=== PATIENT | male | born 1990 | race Caucasian/White ===

== ENCOUNTER 2017-07-17 10:37 | Emergency (ER) | payer MEDICAID ==
[~2017-07-17] VITALS: Ht 177.8 cm; Wt 84.1 kg
[2017-07-17 10:47] VITALS: Ht 177.8 cm; Wt 84.1 kg
[2017-07-17 11:56] LABS: UDS - AMPHET NEGATIVE QUAL (NEGATIVE); UDS - BARB NEGATIVE QUAL (NEGATIVE); UDS - BENZO NEGATIVE QUAL (NEGATIVE); UDS - COCAINE NEGATIVE QUAL (NEGATIVE); UDS - OPIATE NEGATIVE QUAL (NEGATIVE); UDS - PCP NEGATIVE QUAL (NEGATIVE); UDS - THC POSITIVE QUAL (NEGATIVE)
[2017-07-17 12:51] VITALS: BP 154/88
== END 2017-07-17 12:52 | disposition home or self-care (01) ==
LOC: D.ER 10:37
PROVIDERS: Family Medicine
DX: S30.0XXA Contusion of lower back and pelvis, initial encounter (principal); Y04.2XXA Assault by strike against or bumped into by another person, initial encounter; Y93.89 Activity, other specified; Y92.89 Other specified places as the place of occurrence of the external cause; R68.84 Jaw pain

== ENCOUNTER 2017-08-17 10:34 | Emergency (ER) | payer MEDICAID ==
[~2017-08-17] VITALS: Ht 177.8 cm; Wt 81.8 kg
[2017-08-17 10:43] VITALS: Ht 177.8 cm; Wt 81.8 kg
[2017-08-17] MEDS ORDERED: TORADOL10 MG PO (11:33)
[2017-08-17] MEDS ORDERED: CLEOCIN HCL300 MG PO (11:34)
[2017-08-17 11:42] VITALS: BP 117/58
== END 2017-08-17 11:45 | disposition home or self-care (01) ==
LOC: D.ER 10:34
DX: S80.212A Abrasion, left knee, initial encounter (principal); S80.211A Abrasion, right knee, initial encounter; S00.81XA Abrasion of other part of head, initial encounter; S00.31XA Abrasion of nose, initial encounter; V29.9XXA Motorcycle rider (driver) (passenger) injured in unspecified traffic accident, initial encounter; Y93.89 Activity, other specified; Y92.410 Unspecified street and highway as the place of occurrence of the external cause